=== PATIENT | male | born 1980 | race Caucasian/White ===

== ENCOUNTER 2017-01-30 08:26 | Emergency (ER) | payer OTHER ==
[2017-01-30 08:54] LABS: BASOPHIL % 0.3 % (0.0-0.4); Eosinophil % 0.7 % (0.00-5.0); Granulocytes % 72.6 % (36.0-66.0); Lymphocytes % 18.7 % (24.0-44.0); Mean Cell Volume 88.4 fl (78-100); Mean Corpuscular Hemoglobin 30.4 pg (26-32); Mean Platelet Volume 10.3 fl (6-9.5); Monocytes % 7.7 % (0.0-12.0); Platelet Count 150 K/mm3 (150-450); Red Blood Count 4.83 M/mm3 (4.1-5.6); Red Cell Distribution Width 12.9 % (11.5-14.0)
[2017-01-30] MEDS ORDERED: MORPHINE SULFATE 10 MG/ML IV ONE (08:57)
[2017-01-30] MEDS ORDERED: Sodium Chloride 0.9% 1000 ML 1,000 ML IV STA (08:57)
[2017-01-30] MEDS ORDERED: BENADRYL 50 MG/ML IV ONE (08:57)
[2017-01-30] MEDS ORDERED: BENADRYL 50 MG/ML ONE (09:04)
[2017-01-30] MEDS ORDERED: MORPHINE SULFATE 10 MG/ML ONE (09:05)
[2017-01-30] MEDS ORDERED: Sodium Chloride 0.9% 1000 ML 1,000 ML ONE (09:05)
[2017-01-30 09:16] LABS: ALBUMIN 4.1 g/dL (3.4-5.0); ALKALINE PHOSPHATASE 64 U/L (46-116); ANION GAP 12.6 MEQ/L (5-15); BILIRUBIN,TOTAL 0.4 mg/dL (0.2-1.0); BLOOD UREA NITROGEN 22 mg/dL (9-20); CHLORIDE 102 mEq/L (98-107); Carbon Dioxide 29.5 mEq/L (21-32); Glucose 106 MG/DL (70-110); Potassium 3.7 mEq/L (3.5-5.1); SGOT/AST 22 U/L (15-37); SGPT/ALT 19 U/L (12-78); SODIUM 140 mEq/L (136-145); Total Protein 7.3 gm/dL (6.4-8.2)
[2017-01-30 09:28] LABS: COMPLETE URINE MICROSCOPIC? YES; Collection Type VOID
[2017-01-30 09:35] LABS: Bacteria RARE /HPF (NEGATIVE); Epithelial Cells RARE /HPF (FEW); WBC 0-2 /HPF (0-5)
--- NOTE | 2017-01-30 09:59 | XRAY ---
Exam: CT of the abdomen and pelvis without IV contrast 01/30/2017. CTDI: 16.77 Comparison: None. Indication: Left-sided flank pain since Monday, became worse at 4 AM his morning. Technique: Non-IV contrast axial images were obtained through the abdomen and pelvis. No oral contrast was given. Reconstructed coronal and sagittal images were created and reviewed. Findings: On axial image #112 I note an obstructing 2 mm distal left ureteral stone which is causing asymmetric mild left-sided hydronephrosis and hydroureter. This is noted close to the left ureteral vesicle junction. A small amount of proximal left ureter stranding is seen. The urinary bladder reveals no stones. It is incompletely distended. I also note a punctate 2 mm nonobstructing stone within the upper pole of the right kidney. No other renal calculi are seen. No other ureteral calculi are seen. The lung bases are clear. Evaluation of the solid organs is limited without IV contrast. The liver appears unremarkable. The gallbladder is partially contracted. The spleen is slightly enlarged measuring 14.6 cm in greatest axial diameter. The pancreas and adrenal glands appear grossly unremarkable. There is no evidence of abdominal aortic aneurysm or abnormal periaortic lymphadenopathy. A few small shotty periaortic and pericaval lymph nodes are seen. I believe there also a few small nonspecific mesenteric lymph nodes seen within the upper central abdomen. The bowel is not distended. Scattered colonic stool is seen. The appendix appears normal. No free intraperitoneal air or free intraperitoneal fluid is seen. I see no pelvic mass or abnormal pelvic lymphadenopathy. The seminal vesicles and prostate gland reveal minimal prostate gland calcification within the lower central aspect. The bones reveal no acute fracture or aggressive bone lesion. Impression: 1. Obstructing distal left ureteral 2 mm stone near the left ureterovesical junction causing mild left-sided hydronephrosis and hydroureter. 2. There is also a nonobstructing 2 mm stone within the upper pole of the right kidney. 3. Slight splenomegaly. 4. No other acute process is seen within the abdomen or pelvis.
--- NOTE | 2017-01-30 10:14 | ERPHSYRPT ---
- History of Present Illness Time Seen by Provider: 01/30/17 08:37 Source: patient, family () Patient Subjective Stated Complaint: pt co left flank pain that radiates around to left groin area, since sat. pain eases at times. 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 Worse now and radiating to left abd. Some urinary urgency. No hematuria or dysuria. No fever or chills. No vomiting. Pain severe. Quality: sharpness Pain Radiation: left flank Severity of Pain-Max: severe Severity of Pain-Current: severe Allergies/Adverse Reactions: No Known Drug Allergies Allergy (Unverified 01/30/17 08:34) Hx Influenza Vaccination/Date Given: No Hx Pneumococcal Vaccination/Date Given: No Immunizations Up to Date: Yes - Past Medical History Pertinent Past Medical History: No - Past Surgical History Past Surgical History: No - Social History Smoking Status: Never smoker Exposure to second hand smoke: No Drug Use: none Patient Lives Alone: No ([facility] [employer]) - Review of Systems Constitutional: No Fever, No Chills Eyes: No Symptoms Ears, Nose, & Throat: No Symptoms Respiratory: No Cough Cardiac: No Chest Pain Abdominal/Gastrointestinal: Abdominal Pain, Nausea, No Vomiting Genitourinary Symptoms: Frequency, Urgency, No Dysuria, No Hematuria Musculoskeletal: Back Pain (left flank) Skin: No Rash Neurological: No Focal Weakness, No Headache, No Parasthesia All Other Systems: Reviewed and Negative - Nursing Vital Signs Nursing Vital Signs: Initial Vital Signs Temperature 98.1 F Pulse Rate 54 Respiratory Rate 16 Blood Pressure [Right Arm] 127/73 Pain Intensity 6 - Physical Exam General Appearance: alert Eye Exam: PERRL/EOMI Ears, Nose, Throat Exam: normal ENT inspection, moist mucous membranes Neck Exam: normal inspection, non-tender, supple Respiratory Exam: normal breath sounds, lungs clear Cardiovascular Exam: regular rate/rhythm, No murmur Gastrointestinal/Abdomen Exam: soft, No tenderness, No distention, No mass, No guarding Male Genital Exam: normal genitalia, no hernia, circumcised, No testicular tenderness (R), No testicular tenderness (L) Back Exam: normal range of motion, CVA tenderness (left) Extremity Exam: normal inspection, normal range of motion Neurologic Exam: alert, oriented x 3, cooperative, sensation nml, No motor deficits Skin Exam: warm, dry, No rash SpO2 Interpretation: normal SpO2: 97 Oxygen Delivery: Room Air - Course Nursing assessment & vital signs reviewed: Yes - CT Exams abd/pelvis CT Interpretation: Tele-radiologist Report (2mm distal left ureteral stone with hydro) Ordered Tests: Active Orders 24 hr Category Date Time Status Clean Catch Urine Specimen STAT Care 01/30/17 08:46 Active IV Insertion STAT Care 01/30/17 08:46 Active ABDOMEN AND PELVIS W/0 CONTRAS [CT] Stat Exams 01/30/17 08:58 Completed CBC W DIFF Stat Lab 01/30/17 08:30 Completed CMP Stat Lab 01/30/17 08:45 Completed UA W/ MICROSCOPIC Stat Lab 01/30/17 09:15 Completed Medication Summary Discontinued Medications Generic Name Dose Route Start Last Admin Trade Name Freq PRN Reason Stop Dose Admin Diphenhydramine HCl 45 mg 01/30/17 08:57 01/30/17 09:06 Benadryl 50 Mg/Ml IV 01/30/17 08:58 45 mg STAT ONE Administration Diphenhydramine HCl Confirm 01/30/17 09:04 Benadryl 50 Mg/Ml Administered 01/30/17 09:05 Dose 50 mg .ROUTE .STK-MED ONE Sodium Chloride 1,000 mls @ 999 mls/hr 01/30/17 08:57 01/30/17 09:07 Sodium Chloride 0.9% 1000 Ml IV 01/30/17 09:57 999 mls/hr .Q1H1M STA Administration Sodium Chloride Confirm 01/30/17 09:05 Sodium Chloride 0.9% 1000 Ml Administered 01/30/17 09:06 Dose 1,000 mls @ ud .ROUTE .STK-MED ONE Morphine Sulfate 8 mg 01/30/17 08:57 01/30/17 09:07 Morphine Sulfate 10 Mg/Ml IV 01/30/17 08:58 8 mg STAT ONE Administration Morphine Sulfate Confirm 01/30/17 09:05 Morphine Sulfate 10 Mg/Ml Administered 01/30/17 09:06 Dose 10 mg .ROUTE .STK-MED ONE Lab/Rad Data: Laboratory Result Diagrams 01/30/17 08:30 01/30/17 08:45 Laboratory Results 01/30/17 01/30/17 01/30/17 Range/Units 09:15 08:45 08:30 WBC 10.0 (4.0-10.5) K/mm3 RBC 4.83 (4.1-5.6) M/mm3 Hgb 14.7 (12.5-18.0) gm/dl Hct 42.7 (42-50) % MCV 88.4 (78-100) fl MCH 30.4 (26-32) pg MCHC 34.4 (32-36) g/dl RDW 12.9 (11.5-14.0) % Plt Count 150 (150-450) K/mm3 MPV 10.3 H (6-9.5) fl Gran % 72.6 H (36.0-66.0) % Lymphocytes % 18.7 L (24.0-44.0) % Monocytes % 7.7 (0.0-12.0) % Eosinophils % 0.7 (0.00-5.0) % Basophils % 0.3 (0.0-0.4) % Basophils # 0.03 (0-0.4) Sodium 140 (136-145) mEq/L Potassium 3.7 (3.5-5.1) mEq/L Chloride 102 (98-107) mEq/L Carbon Dioxide 29.5 (21-32) mEq/L Anion Gap 12.6 (5-15) MEQ/L BUN 22 H (9-20) mg/dL Creatinine 1.33 H (0.55-1.30) mg/dl Estimated GFR > 60 ML/MIN Glucose 106 (70-110) MG/DL Calcium 9.1 (8.5-10.1) mg/dL Total Bilirubin 0.4 (0.2-1.0) mg/dL AST 22 (15-37) U/L ALT 19 (12-78) U/L Alkaline Phosphatase 64 (46-116) U/L Serum Total Protein 7.3 (6.4-8.2) gm/dL Albumin 4.1 (3.4-5.0) g/dL Ur Collection Type VOID Urine Color YELLOW (YELLOW) Urine Appearance CLEAR (CLEAR) Urine pH 7.0 (5-6) Ur Specific [place] 1.020 (1.005-1.025) Urine Protein NEGATIVE (Negative) Urine Glucose (UA) NEGATIVE (NEGATIVE) mg/dL Urine Ketones NEGATIVE (NEGATIVE) Urine Nitrite NEGATIVE (NEGATIVE) Urine Bilirubin NEGATIVE (NEGATIVE) Urine Urobilinogen 0.2 (0-1) mg/dL Urine WBC (Auto) NEGATIVE (NEGATIVE) Urine RBC (Auto) MODERATE (0-5) Eben/ul Urine Microscopic RBC 5-10 (0-2) /HPF Urine Microscopic WBC 0-2 (0-5) /HPF Ur Epithelial Cells RARE (FEW) /HPF Urine Bacteria RARE (NEGATIVE) /HPF Specimen Received 01/30/1715 - Progress Progress Note: 01/30/17 10:11 Pain improved with morphine, benadryl, IVF. Appt made for [facility]PA follow up Monday at 11:15 [employer] [place]. Kidney stone instructions given. Counseled pt/family regarding: lab results, diagnosis, need for follow-up, rad results - Departure Time of Disposition: 10:15 Departure Disposition: Home Clinical Impression: Renal colic on left side, Left ureteral stone Condition: Fair Critical Care Time: No Referrals: DOCTOR,NO FAMILY [Primary Care Provider] - ZEHRA BIANCHI [Nurse Practioner] - Instructions: Kidney Stones Additional Instructions: See GALILEO Bianchi Monday at 11:15 Strain urine for stone Rx norco for pain- no driving or operating machinery Return for fever, recurrent vomiting, or uncontrolled pain Prescriptions: Ondansetron [Zofran Odt] 4 mg PO Q6HPRN PRN #10 tab.rapdis PRN Reason: Nausea/Vomiting Hydrocodone Bit/Acetaminophen [[place] 5-325 Tablet] 1 each PO Q4-6HPRN PRN #24 tablet PRN Reason: Pain
[2017-01-30 10:32] VITALS: BP 121/71; PULSE 70; O2SAT 98
== END 2017-01-30 10:32 | disposition home or self-care (01) ==
LOC: ED 08:26
DX: N23 Unspecified renal colic (principal); N20.1 Calculus of ureter; R10.9 Unspecified abdominal pain
CPT/HCPCS: 36000; 36415; 74176; 80053; 81000; 85025; 96360; 96374; 96375; 99284; J1200; J2270